=== PATIENT | male | born 1945 | race Caucasian/White ===

== ENCOUNTER → 2018-08-27 | Outpatient (CLI) | payer MEDICARE, BC ==
[~2018-08-27] MED LIST: DIAZEPAM 10 MG TABLET. ONE; EPTIFIBATIDE BOLUS 2,000 MCG/ML 10ML VIAL. IV ONE; HEPARIN for SUB-Q USE 5,000 UNIT/ML VIAL. SQ ONE; IODIXANOL 270 MG/ML 100 ML VIAL. ONE; IV NORMAL SALINE 1000ML BAG 1,000 ML ONE; LIDOCAINE 1%/EPI 1:100,000 20 ML VIAL. ONE; MIDAZOLAM HCL/PF 2 MG/2 ML VIAL. ONE; fentaNYL PF VIAL 100 MCG/2 ML VIAL ONE
--- NOTE | 2018-08-27 20:36 | PCVCINTER ---
EXAM: 1. AORTOGRAM AND BILATERAL LOWER EXTREMITY RUNOFF ANGIOGRAM 2. BILATERAL RENAL ANGIOGRAPHY 3. RIGHT TIBIOPERONEAL TRUNK ATHERECTOMY AND DRUG-ELUTING STENT PLACEMENT. 4. SECONDARY THROMBECTOMY RIGHT TIBIOPERONEAL TRUNK. 5. RIGHT PROXIMAL PERONEAL ARTERY ATHERECTOMY AND ANGIOPLASTY. 6. RIGHT ANTERIOR TIBIAL ARTERY ANGIOPLASTY AND DRUG-ELUTING STENT PLACEMENT. INDICATION: Peripheral arterial disease. Coronary artery disease. Nonhealing ulcer right lower extremity. Hypertension. Renal atherosclerosis. No prior catheter based angiographic study is available. A full diagnostic angiogram study is performed today and the decision to intervene is based on this diagnostic study. PROCEDURE: Procedure and risks of angiography intervention is appropriate including limb loss stroke and were discussed with the patient's family and consent obtained. The patient's left groin was prepped in the normal sterile fashion. IV conscious sedation was used throughout procedure with appropriate monitoring from 10:30 AM through 12:30 PM. Ultrasound was used to interrogate the left groin and showed the left common femoral artery to be patent. A permanent spot film was obtained. Under ultrasound guidance access into the left common femoral artery was obtained and a 5 Latvian sheath was placed. Through this a 5 Latvian flush catheter was placed into the abdominal aorta at the level of the renal arteries and AP aortogram was performed. Catheter was positioned at the aortic bifurcation and both oblique views of the pelvis were obtained. Catheter was positioned into the left external iliac artery and left leg runoff angiography was performed. Catheter was exchanged for a visceral catheter was placed into the right renal arteries and right renal angiograms obtained. Catheter was placed into the the left renal arteries and left renal angiograms were obtained. Catheter was advanced to the level of the right external iliac artery and right leg runoff angiography was obtained. Patient was given 4500 units of heparin. A 6 Latvian crossover sheath was placed via the left groin to the level of the right common femoral artery. Atherectomy of the right tibioperoneal trunk and proximal peroneal artery was performed with 0.9 mm Metaset laser atherectomy catheter in the standard fashion. Following atherectomy small areas of thrombus were observed and because of this secondary thrombectomy throughout the right tibioperoneal trunk was carried out with mechanical suction thrombectomy catheter in the standard fashion. Minimal debris was removed. Angioplasty throughout the proximal peroneal artery was carried out with a 2.5 mm sleek [employer] catheter. Stent placement across the areas of high-grade stenosis in the right tibioperoneal trunk was carried out with a 3.5 x 33 EluNIR stent with subsequent dilatation to 3.8 mm. Angioplasty throughout the entire length of the right anterior tibial artery was performed across multiple areas of occlusion and stenosis. Stent placement across the areas of high-grade stenosis in the right optimal anterior tibial artery was carried out with a 3.5 x 18 EluNIR stent with subsequent dilatation to 3.5 mm. Follow-up angiogram was performed. Catheters and wires removed. Sheath was removed and hemostasis obtained using the FISH device. No immediate complications. FINDINGS: Aortogram: There is one right and one left renal artery. Mild plaque infrarenal abdominal aorta. No flow-limiting stenosis. Pelvis: Right and left common and external iliac arteries are patent. Both internal iliac arteries are patent. The right and left common femoral and profunda femoral arteries are patent. Right renal artery: Mild plaque proximal vessel does not cause significant stenosis. Left renal artery: Mild plaque proximal vessel does not cause significant stenosis. Right leg: Superficial femoral artery and popliteal artery are patent. 90% stenosis tibioperoneal trunk. 95% stenosis origin anterior tibial artery with segmental occlusion throughout the mid anterior tibial artery and occlusion distally. The peroneal artery has subtotal occlusion proximally and is then continuous to refill a tiny dorsalis pedis and small calcaneal collaterals. The posterior tibial artery is occluded throughout its length. Left leg: Moderate plaque throughout the superficial femoral artery with an area of 50% stenosis in the mid vessel. Popliteal artery is patent. Posterior tibial artery is occluded throughout its length. Moderate stenosis tibioperoneal trunk with 90% stenosis proximal peroneal artery. Peroneal artery otherwise continuous to refill tiny calcaneal collaterals. Occlusion throughout the mid anterior tibial artery with high-grade stenoses proximally. Distal vessel refills into moderate-sized dorsalis pedis. Right tibioperoneal trunk artery: Following procedure as above vessel shows good patency. Right proximal peroneal artery: Following procedure as above vessel shows good patency. Right anterior tibial artery: Following procedure as above vessel shows good patency until its distal most portion where it occludes in the small collaterals. IMPRESSION: High-grade stenoses and occlusions throughout the right anterior tibial artery and right peroneal artery and tibioperoneal trunk were treated as above with satisfactory patency restored. Continued occlusion of the distal most anterior tibial artery and throughout the posterior tibial artery. Left anterior tibial artery occlusions and left peroneal artery stenoses could be addressed percutaneously. We will follow-up with the patient in 2-3 months to see what his needs are clinically. Results reviewed with Dr. Watson from wound care. LOC:[id number]
== END | disposition home or self-care (01) ==
LOC: PCVCINTER 08:55
PROVIDERS: ATTEND Nuclear Medicine Nuclear Cardiology
DX: I70.238 Atherosclerosis of native arteries of right leg with ulceration of other part of lower leg (principal); L97.818 Non-pressure chronic ulcer of other part of right lower leg with other specified severity; I25.10 Atherosclerotic heart disease of native coronary artery without angina pectoris; I10 Essential (primary) hypertension; I70.1 Atherosclerosis of renal artery; I70.0 Atherosclerosis of aorta; I70.292 Other atherosclerosis of native arteries of extremities, left leg
CPT/HCPCS: 36252; 37186; 37231; 37234; 75716; 76937; 99152; 99153; C1725; C1751; C1757; C1760; C1769; C1874; C1885; C1887; C1894; J0690; J1327; J1644; J2250; J3010; J3490; J7030; Q9967; 37230

== ENCOUNTER → 2018-12-04 | Outpatient (CLI) | payer MEDICARE, BC ==
--- NOTE | 2018-12-04 08:58 | PCVCIMAG ---
EXAM: LEFT CAROTID DUPLEX INDICATION: Carotid Occlusive Disease. FINDINGS: Doppler Measurements (centimeters per second): LEFT: Peak CCA-86, Peak ECA-69, Diastolic ICA-26, Peak ICA-99, ICA/CCA Ratio-1.2. LEFT CAROTID: The carotid bulb has mild plaque. The proximal internal carotid artery shows <40% stenosis. The common carotid artery shows no significant stenosis. The external carotid artery shows no significant stenosis. Antegrade flow in both vertebral arteries. IMPRESSION: Please note because of a severe right flexion contraction of the patient's neck were unable to visualize the right carotid artery with ultrasound. <40% stenosis of the left internal carotid artery with mild plaque. LOC:[id number]
--- NOTE | 2018-12-04 09:44 | PCVCIMAG ---
EXAM: RIGHT LOWER EXTREMITY ARTERIAL DUPLEX INDICATION: Peripheral Arterial Disease. Leg pain. Nonhealing ulcer right lower leg. FINDINGS: Right Leg: Common femoral and profunda femoral arteries are patent. Superficial femoral artery and popliteal arteries are patent. Occlusion is redeveloped throughout the mid and distal anterior tibial artery. Unchanged occlusion throughout the posterior tibial artery. Tibioperoneal trunk appears patent within prior stent. 95% restenosis proximal peroneal artery at site of prior angioplasty. IMPRESSION: Previous right tibioperoneal trunk stent maintaining good patency. Interval development of 95% restenosis proximal right peroneal artery at site of prior intervention. Redevelopment of occlusion throughout the mid and distal anterior tibial artery. LOC:[id number]
== END | disposition home or self-care (01) ==
LOC: PCVCIMAG 07:30
PROVIDERS: ATTEND Nuclear Medicine Nuclear Cardiology
DX: I65.22 Occlusion and stenosis of left carotid artery (principal); I73.9 Peripheral vascular disease, unspecified
CPT/HCPCS: 93880; 93926; G0463